=== PATIENT | female | born 1950 | race Caucasian/White ===

== ENCOUNTER 2025-09-19 12:58 | Outpatient (AMB) | payer MEDICARE, OTHER, SELFPAY ==
--- NOTE | 2025-09-19 13:43 | HO.NEPHOV_ITS ---
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 Hypertension: On amlodipine 2.5 mg, benazepril 40 mg, hydrochlorothiazide 25 mg daily lung nodule: partial pneumonectomy Jun 2024 after that she developed ulcerative colitis and is on mesalamine currently Years ago she had seen a renal doctor for microscopic hematuria for few years and it resolved. She developed some swelling in the leg with amlodipine, so her benzapril was doubled from 20 to 40 on August 09. [facility] Medical History (Updated 09/19/25 @ 14:39 by Jamshid Witt MD) Ulcerative colitis Lung cancer Diverticulosis of sigmoid colon HLD (hyperlipidemia) Hypertension Periodontal disease Surgical History (Updated 09/19/25 @ 13:47 by Tyra Rajput MA) S/P lobectomy of lung History of laparoscopic appendectomy H/O colonoscopy Family History (Updated 09/19/25 @ 13:46 by Tyra Rajput MA) Father Heart disease Paternal Uncle Heart disease Social History (Updated 09/19/25 @ 13:46 by Tyra Rajput MA) Alcohol intake: never Patient Tobacco Use Status: Former Tobacco user Use of substances other than those prescribed or required for medical reasons: No Review of Systems Const Details: Const : no body aches, no chills, no fatigue Eyes: no blurry vision and no change in vision ENT: no bleeding gums and no change in voice, no dizziness Card: no chest pain, no shortness of breath, swelling in the leg Resp: no cough, no excessive phlegm production, no SOB GI: no abdominal pain and no nausea, no vomiting : no hematuria, no urinary frequency and no difficulty voiding Musc: no abnormal gait, no bone pain Neuro: no abnormal movements, no weakness, no dizziness, no abnormal gait and no behavioral changes Psych: no behavioral changes and no change in appetite Endo: no change in body appearance, no cold intolerance, no excessive sweating and no fatigue Physical Exam Vital Signs: Last Vital Signs Pulse 66 09/19/25 13:49 BP 132/72 09/19/25 13:49 Pulse Ox 96 09/19/25 13:49 Oxygen Delivery Method Room Air 09/19/25 13:49 BMI result Body Mass Index 27.8 General: not in any acute distress, comfortable, sitting on the chair Nutritional Appearance: well nourished and weight Eyes: normal position, no icterus Neck: No lymphadenopathy, no thyromegaly Resp: bilateral air entry equal, no added sounds present Cardio: normal S1, S2 heard, no murmur heard, no to very minimal edema GI: soft, nontender, no guarding, no hepatosplenomegaly : bladder normal to inspection, bladder normal to palpation, no renal angle tenderness Skin: no rashes or lesions noted and elasticity normal Neuro: oriented to person, oriented to place, oriented to time and moves all extremities Assessment & Plan Assessment & Plan (1) Chronic kidney disease: Code(s): N18.9 - Chronic kidney disease, unspecified Category: Medical Plan Chronic kidney disease stage : unsure if this is related to increase in dose of benzapril, will decrease dose back to 20mg and recheck labs in a month. - no family history of CKD, no history of renal stones in the past, NSAID use. - creatinine 1.25 , GFR 45 - we will get urine microalbumin creatinine ratio and UPCR: - Urinalysis clean - Ct abdomen showing normal sized kidney with a possible extrarenal pelvis this was seen in 2017 - avoid nephrotoxic medications not limited to NSAIDs, contrast etc. - recommend LPD protein about 0.6mg/kg/day, benefits of plant based diet, weight loss, adequate blood pressure control, stop smoking - will get hepatitis panel, HIV, LEONIDAS, ANCA, complements, SPEP, UPEP, serum free light chains, PLA2R - hepatitis C negative Hypertension: - target blood pressures less than 130/90 mm Hg - amlodipine caused lower extremity swelling, so decreased to 2.5 - will decrease bezapril back to 20mg and increase HCTZ to 50mg and recheck labs if creatininemia resolved. Mineral bone disease: - will get calcium, phos, vitamin-D and PTH levels Total time spent is about 45mins, 10 mins on chart review, 25mins on encounter, 10 mins on documentation. Orders: Orders Hepatitis B,C Profile 1 Month N18.9 - Chronic kidney disease, unspecified HIV Ab/Ag 1 Month N18.9 - Chronic kidney disease, unspecified LEONIDAS Reflex Titer and Pattern 1 Month N18.9 - Chronic kidney disease, unspecified ANCA Vasculitides 1 Month N18.9 - Chronic kidney disease, unspecified Complement C4 1 Month N18.9 - Chronic kidney disease, unspecified Protein Electrophoresis,Ran Ur 1 Month N18.9 - Chronic kidney disease, unspecified Protein Electrophoresis, Serum 1 Month N18.9 - Chronic kidney disease, unspecified UA and rflx microscopic 1 Month N18.9 - Chronic kidney disease, unspecified Total Protein Urine Random 1 Month N18.9 - Chronic kidney disease, unspecified Complete Blood Count no Diff 1 Month N18.9 - Chronic kidney disease, unspecified Complement C3 1 Month N18.9 - Chronic kidney disease, unspecified [place]/Lambda Light Chain Serum 1 Month N18.9 - Chronic kidney disease, unspecified Phospholipase A2 Receptor Pnl 1 Month N18.9 - Chronic kidney disease, unspecified Basic Metabolic Panel 1 Month N18.9 - Chronic kidney disease, unspecified Microalbumin, Random (w Creat) 1 Month N18.9 - Chronic kidney disease, unspecified Medications: New benazepril 20 mg (1/2 x 40 mg) PO DAILY 30 tabs 1RF 30 days Coding Level of Care Code New Pt Level 4 (16859) Diagnoses Chronic kidney disease N18.9
[2025-09-19 13:49] VITALS: BP 132/72; PULSE 66; O2SAT 96; BMI 27.8
== END 2025-09-19 14:41 | disposition home or self-care (01) ==
LOC: HO.HKAS 12:59
PROVIDERS: PCP Internal Medicine; Visit Provider Internal Medicine Critical Care Medicine
DX: N18.9 Chronic kidney disease, unspecified (principal)
CPT/HCPCS: 99204

== ENCOUNTER → 2025-09-19 12:58 | Outpatient (BNVA) | payer MEDICARE, OTHER, SELFPAY | PROVIDERS: PCP Internal Medicine; Visit Provider Internal Medicine Critical Care Medicine | DX: I10 Essential (primary) hypertension (principal); N18.9 Chronic kidney disease, unspecified | CPT/HCPCS: 99202 ==

== ENCOUNTER 2025-11-02 09:43 | Outpatient (AMB) | payer MEDICARE, OTHER, SELFPAY ==
--- OUTSIDE RECORDS SUMMARY | 2024-11-11 10:00 | XMS_ITS ---
Author Organization [facility] Address [address] [place] [id number] Care Team Providers Care Client Partner Name Role Phone KIERRA SONG Primary Care Provider DR. ADONIS STEELE [phone] REASON FOR VISIT 36/42/Soft Stools Encounters Encounter Location Date Provider Diagnosis [place] [phone] 11/11/2024 ADONIS STEELE Plan Of Treatment Next Appt Details Provider Name:KIERRA ZEPEDA, 11/21/2025 12:30:00 PM, [address] [place] [address], [id number], Progress Notes * BRYAN NUGENT KDOB: [birth year] (75 yo F)Acc No.[id number]:11/11/2024 Progress Notes Patient: BRYAN HERNANDEZ Provider: Seven STEELE MD :1950 A ge:74 Y S ex:Female Date:11/11/2024 Address:[address] [place], [place] [id number] Pcp:KIERRA SONG Subjective: * Chief Complaints: * 3 6/42/Soft Stools * Electronic signature of DR. ADONIS STEELE M.D. on 11/02/2025 at 10:19 AM EST Sign off status: Pending * Provider: Seven STEELE MD Date: 0 11/11/2024 Generated for Stanford stover/Gabriele/Hilaria on: 1 10:19 AM EST
--- NOTE | 2025-11-02 10:06 | HO.NEPHOV ---
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 Hypertension: On amlodipine 2.5 mg, benazepril 40 mg, hydrochlorothiazide 25 mg daily. Blood pressures are okay at home. lung nodule: partial pneumonectomy Jun 2024 after that she developed ulcerative colitis and was on mesalamine currently. She stopped Mesalamine about a week ago due to concerns about her kidney disease, her ulcerative colitis is under controlled. Years ago she had seen a renal doctor for microscopic hematuria for few years and it resolved. She developed some swelling in the leg with amlodipine, so her benzapril was doubled from 20 to 40 on August 09. [facility] Medical History (Updated 11/02/25 @ 11:02 by Jamshid Witt MD) Ulcerative colitis Lung cancer Diverticulosis of sigmoid colon HLD (hyperlipidemia) Hypertension Periodontal disease Surgical History S/P lobectomy of lung History of laparoscopic appendectomy H/O colonoscopy Family History Father Heart disease Paternal Uncle Heart disease Social History Alcohol intake: never Patient Tobacco Use Status: Former Tobacco user Review of Systems Const Details: Const : no body aches, no chills, no excessive sweating and no fatigue Eyes: no blurry vision and no change in vision ENT: no bleeding gums and no change in voice, no dizziness Card: no chest pain, no shortness of breath, no orthopnea, no PND Resp: no cough, no excessive phlegm production, no SOB GI: no abdominal pain and no nausea, no vomiting : no hematuria, no urinary frequency and no difficulty voiding Musc: no abnormal gait, no bone pain Neuro: no abnormal movements, no weakness, no dizziness Psych: no behavioral changes and no change in appetite Endo: no change in body appearance, no cold intolerance, no excessive sweating and no fatigue Physical Exam Vital Signs: Last Vital Signs Pulse 83 11/02/25 10:07 BP 124/80 11/02/25 10:07 Pulse Ox 93 11/02/25 10:07 Oxygen Delivery Method Room Air 11/02/25 10:07 BMI result Body Mass Index 27.8 General: not in any acute distress, comfortable, sitting on the chair Nutritional Appearance: well nourished and weight Eyes: normal position, no icterus Neck: No lymphadenopathy, no thyromegaly Resp: bilateral air entry equal, no added sounds present Cardio: normal S1, S2 heard, no murmur heard, no edema GI: soft, nontender, no guarding, no hepatosplenomegaly : no renal angle tenderness Skin: no rashes or lesions noted and elasticity normal Neuro: oriented to person, oriented to place, oriented to time and moves all extremities Assessment & Plan Assessment & Plan (1) Chronic kidney disease: Code(s): N18.9 - Chronic kidney disease, unspecified Category: Medical (2) Hypertension: Code(s): I10 - Essential (primary) hypertension Category: Medical Plan Chronic kidney disease stage III : workup so far negative, urinalysis benign possibly suggesting medication induced. Will take off mesalamine and recheck labs if it is not getting better will take off benzapril and then consider renal biopsy if it continues to worsen. She was on benzapril for about 5 years, dose increased 2 months ago, but reduced to previous dose a month ago. - no family history of CKD, no history of renal stones in the past, NSAID use. - creatinine 1.25 ->1.45 , GFR 38 - urine microalbumin creatinine ratio negative and UPCR:normal - Urinalysis clean - Ct abdomen showing normal sized kidney with a possible extrarenal pelvis this was seen in 2017 - avoid nephrotoxic medications not limited to NSAIDs, contrast etc. - recommend LPD protein about 0.6mg/kg/day, benefits of plant based diet, weight loss, adequate blood pressure control - negative hepatitis panel, HIV, LEONIDAS, ANCA, complements, SPEP, UPEP, serum free light chains, PLA2R - hepatitis C negative Hypertension: - target blood pressures less than 130/90 mm Hg - amlodipine caused lower extremity swelling, so decreased to 2.5 - benzapril reduced back to 20mg and HCTZ increased to 50mg during last visit. Asked the patient to stop amlodipine 2.5mg and check her blood pressures and let us know. Will follow her back in a month with repeat BMP> Orders: Orders Basic Metabolic Panel Today N18.9 - Chronic kidney disease, unspecified Coding Level of Care Code Est Pt Level 4 (32243) Diagnoses Chronic kidney disease N18.9 Hypertension I10
[2025-11-02 10:07] VITALS: BP 124/80; PULSE 83; O2SAT 93; BMI 27.8
--- OUTSIDE RECORDS SUMMARY | 2025-11-02 10:20 | XMS_ITS | Clinical Summary ---
Author Organization [facility] [address] [facility] Address [address] [place] [address] Phone Care Team Providers Care Numerical Control Tool Programmer Name Role Phone Pérez Song MD Primary Care Provider + [phone] Allergies Active Allergy Reactions Criticality Noted Date Comments Other 03/11/2024 Seasonal Allergies Penicillins Hives 02/09/2024 Medications aspirin (Vazalore) 81 mg capsule Take by mouth. Active cholecalciferol (VITAMIN D-3) 25 mcg (1,000 unit) tablet Take 1 tablet (1,000 Units total) by mouth 1 (one) time each day. 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 Do not crush, chew, or split. 180 each 3 5 01/11/20 26 Active atorvastatin (LIPITOR) 80 mg tablet Take 1 tablet (80 mg total) by mouth at bedtime. Active amLODIPine-benazepri l (LotreL) 5-10 mg per capsule Take 1 capsule by mouth 1 (one) time each day. Active benazepriL (LOTENSIN) 40 mg tablet Take 1 tablet (40 mg total) by mouth 1 (one) time each day. Active amLODIPine (NORVASC) 2.5 mg tablet Take 1 tablet (2.5 mg total) by mouth 1 (one) time each day. Active hydroCHLOROthiazide (HYDRODIURIL) 50 mg tablet Take 1 tablet (50 mg total) by mouth 1 (one) time each day. Active Hospital, Clinic, or Other Facility Administered Medication Ordered Dose Route Frequency Start Date End Date Status polyethylene glycol (PEG) bowel preparation 238 gIndications:Colon cancer screening 238 g oral Once 09/13/2024 Active Active Problems Problem Noted Date Diagnosed Date History of lung cancer 01/18/2025 Assessment & Plan (08/01/2025 4:28 PM EDT): Ms. Luis is a 74 yr. 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 Her chest CT surveillance scan which was performed on 07/21/25 at [facility] and shows some small stable pleural associated nodules anterolateral aspect of the middle lobe. There no new or worsening suspicious pulmonary nodules or mediastinal lymphadenopathy to suggest evidence of residual or recurrent disease. She was educated that we will continue to follow with her every [address] scans for the first 2 years following her surgical date. After [address] surveillance her chest CT intervals will be increased to every 12 months with a visit to the thoracic surgery department thereafter to discuss results for a total of 5 years. Her next chest CT surveillance scan will be due in 6 months which will be January 2026 and have a visit to thoracic surgery department thereafter to discuss results Assessment & Plan (01/18/2025 1:24 PM EDT): Ms. Luis is a 74 yr. 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 Her chest CT surveillance scan which was performed on 01/05/2025 at [facility] and shows some small stable pleural associated nodules anterolateral aspect of the middle lobe. There no new or worsening suspicious pulmonary nodules or mediastinal lymphadenopathy to suggest evidence of residual or recurrent disease. She denies any concerning symptoms such as new or worsening shortness of breath, hemoptysis, unintentional weight loss or drenching night sweats. She was educated that we will continue to follow with her every [address] scans for the first 2 years following her surgical date. After [address] surveillance her chest CT intervals will be increased to every 12 months with a visit to the thoracic surgery department thereafter to discuss results for another 3 years. She will also require further chest CT scans after 5 years because she is a recent former smoker and had her last cigarette approximately 7 months ago. Her next chest CT scan will be due in July 2025 and have a visit at the thoracic surgery department thereafter to discuss results. Primary cancer of left upper lobe of lung 2023 HTN (hypertension) 03/17/2024 COPD (chronic obstructive pulmonary disease) Pulmonary nodule 03/17/2024 Overview (08/09/2024): Last Assessment & Plan: 73-year-old woman with suspicious PET avid pulmonary nodule in the left upper lobe clinical stage I lung cancer until proven otherwise. Again I had a long discussion with her about lung nodules in general and how their size, shape, and changer fixer time affect her level of suspicion for malignancy. We discussed the PET scan and how they work. Her pulmonary function testing is excellent. With that in mind I discussed 2 options with her 1 would be robotic navigation bronchoscopy with biopsy and to would be a robotic lingular resection for diagnosis and possible lobectomy. She wants to proceed with the biopsy but she is also going to discuss this with her family. I did introduce her to who is going to arrange for the biopsy at [place] in about 2 weeks. Risks benefits and the alternatives were discussed in detail which she understood and agreed to proceed with this plan. If she changes her mind with discussed with her family she will let us know. All questions were answered. Mixed hyperlipidemia 03/17/2024 Periodontal disease 03/17/2024 Lung nodules 03/11/2024 Overview (08/09/2024): Last Assessment & Plan: 73-year-old woman longtime and current smoker with a nodule somewhat intraparenchymal in the left upper lobe suspicious for clinical stage I lung cancer based on size and shape. I had a long discussion with her about pulmonary nodules in general and how their size, shape, and changer fixer time affect our level of suspicion for malignancy. I described the CAT scan to her in detail as described in the HPI. I also discussed the diagnosis, staging, and treatment of lung cancer which she seemed understand. The options I discussed with her our continued observation versus needle biopsy versus surgical resection. Unfortunately, due to its somewhat central position within the lung parenchyma I do not think this could be wedged out surgically without taking a large portion of the left upper lobe if not the entire left upper lobe. Personally, I would recommend a navigational bronchoscopy with biopsy by our interventional floor sweeper but she is not quite ready to make that decision just yet. Either way, we will need to get a PET scan and pulmonary function testing which we should do in the next 2 weeks and then have her follow-up with me in the office to discuss this further. All questions were answered. Encounters Date Type Department Care Team Description 09/23/2025 2:20 PM EST Office Visit Gastroenterology - [address] [facility] 299 [facility] [address] [place] [phone] Debra Salazar, JAEL Ulcerative rectosigmoiditis without complication ([facility] V24, [facility] V28) (Primary Dx) 09/09/2025 9:24 AM EST - 09/09/2025 11:59 PM EST Hospital Encounter [facility] CT Scan [address] [place] [phone] Abdominal distention Discharge Disposition: Home or Self Care from Last 3 Months Surgical History Surgery Date Site/Laterality Comments APPENDECTOMY PROCEDURE:APPENDECTOMY COLONOSCOPY PROCEDURE:COLONOSCOPY CATARACT EXTRACTION W/ INTRAOCULAR LENS IMPLANT Bilateral PROCEDURE:CATARACT EXTRACTION W/ INTRAOCULAR LENS IMPLANT BRONCHOSCOPY RIGID / FLEXIBLE 06/01/2024 Left PROCEDURE:BRONCHOSCOPY RIGID / FLEXIBLE;COMMENT:Procedure: ROBOTIC ASSISTED BRONCHOSCOPY W. ROSARIO FNA, TBBX, BRUSH, BAL + RADIAL EBUS, LINEAR EBUS TBNA W. FLUOROSCOPY, 11L; Surgeon: Kunal Herrera MD; Location: [facility] MAIN OPERATING ROOM; Service: Pulmonary; Laterality: Left; ROBOTIC ASSISTED BRONCHOSC LUNG LOBECTOMY Left PROCEDURE:LUNG LOBECTOMY Medical History Medical History Date Comments Hypertension DX:Hypertension Hyperlipidemia DX:Hyperlipidemi a COPD (chronic obstructive pu lmonary disease) (CMS/HCC V24, CMS/[facility] V28) DX:COPD (chronic o bstructive pulmonary disease) (HCC) Migraine headache DX:Migraine he adache;COMMENT:Past hx Cataract DX:Cataract;COMM ENT:Bilateral Arthritis DX:Arthritis Palpitations DX:Palpitations; COMMENT:Related to anxiety, per pt Lung cancer ([facility] V24, [facility] V28) Family History Medical History Relation Name Comments Bladder Cancer Brother Breast cancer Sister Relation Name Status Comments Brother Father Mother Sister Social History Tobacco Use Types Packs/Day Years Used Date Smoking Tobacco: Former Cigarettes 1 Q uit: 03/03/2024 Smokeless Tobacco: Never Alcohol Use Standard Drinks/Week Comments Not Currently 0 (1 standard drink = 0.6 oz pur e alcohol) Interpersonal Safety Answer Date Record ed Physical Abuse Unrecognized value 12/27/2024 Verbal Abuse Unrecognized value 12/27/2024 Comments No Sex and Gender Information Value Date Recorded Sex Assigned at Female 09/16/2024 11:13 AM EST Legal Sex Female 2:35 AM EST Gender Identity Female 09/16/2024 11:13 AM EST Sexual Orientation Straight 09/16/2024 11 :13 AM EST Obstetrics History Para Term AB IAB SAB Ectopic Multiple Livin g Live Births 2 Last Filed Vital Signs Vital Sign Reading Time Taken Comments Blood Pressure 132/80 09/23/2025 1:53 PM EST Pulse 81 09/23/2025 1:53 PM EST Temperature 36.6 C (97.9 F) 08/01/2025 9:44 AM EDT Respiratory Rate 14 08/01/2025 9:44 AM EDT Oxygen Saturation 98% 09/23/2025 1:53 PM EST Inhaled Oxygen Concentration - - Weight 68.9 kg (152 lb) 09/23/2025 1:53 PM EST Height 160 cm (5' 3 ) 09/23/2025 1:53 PM EST Body Mass Index 26.93 09/23/2025 1:53 PM EST Plan of Treatment Upcoming Encounters Date Type Department Care Team (Late st Contact Info) Description 05/25/2026 9:00 AM EDT Office Visit Gastroenterology - [address] [place] [phone] Debra Salazar NP 299 [facility] [address] [place] [address] Health Maintenance Due Date Last Done Comments DTaP,Tdap,and Td Vaccines (1 - Tdap) 1969 Zoster Vaccines (1 of 2) 1969 Cholesterol Screening (Lipid Panel) 10/06/2022 Hepatitis C Screening 10/06/2022 Medicare Annual Wellness Visit 10/06/2022 Social Influencers of Health Screening 10/06/2022 Hypertension/CHF/CAD Annual BMP Blood Test 05/28/2024 Depression Screening 11/03/2024 COVID-19 Vaccine ( season) 2025 08/07/2024, 08/07/2023, 07/20/2022, Additional history exists RSV Immunization Adult Patients (1 - 1-dose 75+ series) 2025 Falls Risk Assessment 12/27/2025 12/27/2024 Osteoporosis Screening (Bone Density Screening) 07/17/2033 07/17/2023 Colorectal Cancer Screening: Colonoscopy 12/27/2034 12/27/2024 Pneumococcal Vaccine: 50+ Years Completed 03/22/2023 Breast Cancer Screening Discontinued 11/06/19, 07/28/2023, 11/14/2019, Additional history exists Influenza Vaccine Completed 08/20/2025, , 09/05/2023, Additional history exists HIB Vaccines Aged Out No longer eligi ble based on patient's age to complete this topic HPV Vaccines Aged Out No longer eligi ble based on patient's age to complete this topic Hepatitis A Vaccines Aged Out No long er eligible based on patient's age to complete this topic Hepatitis B Vaccines Aged Out No long er eligible based on patient's age to complete this topic IPV Vaccines Aged Out No longer eligi ble based on patient's age to complete this topic MMR Vaccines Aged Out No longer eligi ble based on patient's age to complete this topic Meningococcal ACWY Vaccine Aged Out N o longer eligible based on patient's age to complete this topic Meningococcal B Vaccine Aged Out No l onger eligible based on patient's age to complete this topic RSV Immunization Patients Under 20 months Aged Out No longer eligible based on patient's age to complete this topic Varicella Vaccines Aged Out No longer eligible based on patient's age to complete this topic Procedures Procedure Name Priority Date/Time Associated Diagnosis Comments CT ABDOMEN PELVIS WO CONTRAST Routine 09/09/2025 9:46 AM EST Abdominal distention COLONOSCOPY Routine 12/27/2024 12:58 PM EST Family history of colonic polyps MG MAMMO DIGITAL SCREENING W HECTOR BILAT Routine 11/06/2024 9:15 AM EST Encounter for screening mammogram for breast cancer DORY DEXA AXIAL SKELETON Routine 07/17/2023 10:35 AM EDT Other specified disorders of bone density and structure, left thigh from Last 3 Months or Most Recently Relevant to Health Maintenance Results * CT Abdomen Pelvis wo Contrast (09/09/2025 9:46 AM EST) Anatomical Region Laterality Modality Body Computed Tomogra phy 09/16/2025 11:3 4 AM EST Impressions 09/16/2025 11:50 AM EST 1. No evidence of bowel obstruction. 2. No acute abnormality. 3. Abnormal appearance of the uterus. Recommend pelvic ultrasound. Pulmonary nodule recommendation: No further investigation recommended (Per Fleischner Society guidelines). -------- FINAL REPORT -------- Dictated By: Gaston Daniels Dictated Date: 09/16/2025 11:34 ET Assigned Physician: Gaston Daniels Reviewed and Electronically Signed By: Gaston Daniels Signed Date: 09/16/2025 11:50 ET Workstation ID: [id number] Transcribed By: Self Edit Transcribed Date: 09/16/2025 11:34 ET Narrative 09/16/2025 11:50 AM EST EXAMINATION: CT ABDOMEN/PELVIS WITHOUT IV CONTRAST CLINICAL INFORMATION: Abdominal distention. COMPARISON: Portions of a previous CT 03/13/07 TECHNIQUE: Multidetector CT. Helical examination of the abdomen and pelvis. Imaging performed without IV contrast. Reformatting in the coronal and sagittal planes. DLP: 907 mGy-cm Dose optimization was performed including the use of low-dose iterative reconstruction technique with automatic exposure control based on patient size. Type of contrast: None Volume of IV contrast: None Volume of contrast discarded: 0 mL FINDINGS: Digital ceramic painter does not demonstrate definite small bowel distention. LIVER: The right lobe of the liver measures 15.5 cm. No suspicious focal lesion. BILIARY TRACT: The gallbladder is not distended. There is no opaque gallstone. There is no biliary dilation. SPLEEN: The spleen measures 7.1 cm. No suspicious abnormality. PANCREAS: No suspicious abnormality. ADRENAL GLANDS: No suspicious abnormality. KIDNEYS: Mild fullness of the extrarenal pelvis bilaterally similar to 2007. There is no dilation of the infundibula or calyces. There is no suspicious renal mass. There is no opaque urinary calculus. URINARY BLADDER: The bladder is nearly empty. No suspicious abnormality. PELVIC VISCERA: There is a contour abnormality involving the uterine fundus. The endometrium appears slightly heterogeneous and mildly thickened. Recommend pelvic ultrasound. The ovaries appear within normal limits. GASTROINTESTINAL TRACT: Oral contrast is present in the distal colon. There is some fatty prominence in the wall of the distal colon. No abnormal appendix. Normally distributed normal caliber small bowel loops. There is a small to moderate size hiatal hernia. ABDOMINAL WALL: No significant hernia is appreciated. LYMPHOVASCULAR STRUCTURES AND FLUID: There is no abdominal aortic aneurysm. There are no enlarged lymph nodes. There is no free intraperitoneal fluid. VISUALIZED LOWER CHEST: No suspicious abnormality. Unchanged pleural associated 0.4 cm nodule in the lateral segment of the middle lobe. There is some coronary calcification. MUSCULOSKELETAL: No acute or suspicious osseous abnormality. Procedure Note Gaston Daniels MD - 09/16/2025 EXAMINATION: CT ABDOMEN/PELVIS WITHOUT IV CONTRAST CLINICAL INFORMATION: Abdominal distention. COMPARISON: Portions of a previous CT 03/13/07 TECHNIQUE: Multidetector CT. Helical examination of the abdomen and pelvis. Imaging performed without IV contrast. Reformatting in the coronal and sagittal planes. DLP: 907 mGy-cm Dose optimization was performed including the use of low-dose iterativereconstruction technique with automatic exposure control based on patientsize. Type of contrast: None Volume of IV contrast: None Volume of contrast discarded: 0 mL FINDINGS: Digital ceramic painter does not demonstrate definite small bowel distention. LIVER: The right lobe of the liver measures 15.5 cm. No suspicious focallesion. BILIARY TRACT: The gallbladder is not distended. There is no opaquegallstone. There is no biliary dilation. SPLEEN: The spleen measures 7.1 cm. No suspicious abnormality. PANCREAS: No suspicious abnormality. ADRENAL GLANDS: No suspicious abnormality. KIDNEYS: Mild fullness of the extrarenal pelvis bilaterally similar [id number]. There is no dilation of the infundibula or calyces. There is nosuspicious renal mass. There is no opaque urinary calculus. URINARY BLADDER: The bladder is nearly empty. No suspiciousabnormality. PELVIC VISCERA: There is a contour abnormality involving the uterinefundus. The endometrium appears slightly heterogeneous and mildlythickened. Recommend pelvic ultrasound. The ovaries appear within normal limits. GASTROINTESTINAL TRACT: Oral contrast is present in the distal colon.There is some fatty prominence in the wall of the distal colon. No abnormal appendix. Normally distributed normal caliber small bowel loops. There is a small tomoderate size hiatal hernia. ABDOMINAL WALL: No significant hernia is appreciated. LYMPHOVASCULAR STRUCTURES AND FLUID: There is no abdominal aorticaneurysm. There are no enlarged lymph nodes. There is no freeintraperitoneal fluid. VISUALIZED LOWER CHEST: No suspicious abnormality. Unchanged pleuralassociated 0.4 cm nodule in the lateral segment of the middle lobe. Thereis some coronary calcification. MUSCULOSKELETAL: No acute or suspicious osseous abnormality. IMPRESSION: 1. No evidence of bowel obstruction. 2. No acute abnormality. 3. Abnormal appearance of the uterus. Recommend pelvic ultrasound. Pulmonary nodule recommendation: No further investigation recommended (PerFleischner Society guidelines). -------- FINAL REPORT -------- Dictated By: Gaston Daniels Dictated Date: 09/16/2025 11:34 ET Assigned Physician: Gaston Daniels Reviewed and Electronically Signed By: Gaston Daniels Signed Date: 09/16/2025 11:50 ET Workstation ID: [id number] Transcribed By: Self Edit Transcribed Date: 09/16/2025 11:34 ET Pérez Song MD IM CT PROCEDURES Final Resu lt * COLONOSCOPY Anesthesia - MAC; [facility] ENDOSCOPY (12/27/2024 12:58 PM EST) Anatomical Region Laterality Modality Endoscopy 12/27/2024 12:3 7 PM EST Impressions 12/27/2024 1:03 PM EST - Hemorrhoids found on perianal exam. - The examined portion of the ileum was normal. Biopsied. - Proctosigmoid ulcerative colitis. Inflammation was found from the anus to the sigmoid colon. This was mild in severity, new compared to previous examinations. - Internal hemorrhoids. - Background biopsies were taken from the entire colon. Recommendation: - Await pathology results. Narrative 12/27/2024 1:03 PM EST [facility] GI Patient Name: Dilma Luis Procedure Date: 12/27/2024 12:37 PM Date of : 1950 Age: 74 Gender: Female Note Status: Finalized Attending MD: Gabriela Nunez MD, Procedure Date No Time: 12/27/2024 Procedure: Colonoscopy Indications: Screening for colorectal malignant neoplasm, Incidental change in bowel habits noted Providers: Gabriela Nunez MD Referring MD: Pérez Song MD Medicines: Propofol per Anesthesia Complications: No immediate complications. Estimated Blood Loss: Estimated blood loss: none. Procedure: Pre-Anesthesia Assessment: - ASA Grade Assessment: III - A patient with severe systemic disease. After I obtained informed consent, the scope was passed under direct vision. Throughout the procedure, the patient's blood pressure, pulse, and oxygen saturations were monitored continuously.The Olympus Pediatric Colonoscope was introduced through the anus and advanced to the terminal ileum. The colonoscopy was performed without difficulty. The patient tolerated the procedure well. The quality of the bowel preparation was adequate. Findings: Hemorrhoids were found on perianal exam. The terminal ileum appeared normal. Biopsies were taken with a cold forceps for histology. Inflammation characterized by erythema and loss of vascularity was found in a continuous and circumferential pattern from the anus to the sigmoid colon (0-25cm). The proximal sigmoid colon, the mid sigmoid colon, the descending colon, the ascending colon and the cecum were spared. The inflammation was mild in severity, and when compared to previous examinations, the findings are new. Background biopsies were taken for histology with a cold forceps from the entire colon. These biopsy specimens from the right colon, left colon and rectosigmoid colon were sent to Pathology. Internal hemorrhoids were found during retroflexion. The hemorrhoids were Grade I (internal hemorrhoids that do not prolapse). 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 All rights reserved. The codes documented in this report are preliminary and upon rhit review may be revised to meet current compliance requirements. Gabriela Nunez MD 12/27/2024 1:02:51 PM This report has been signed electronically.Gabriela Nunez MD Number of Addenda: 0 Note Initiated On: 12/27/2024 12:37 PM Scope In: Scope Out: Endoscopy Department at [facility] - [address] [place] [id number] Procedure Note Gabriela Nunez MD - 12/27/2024 [facility] GI Patient Name: Dilma Luis Procedure Date: 12/27/2024 12:37 PM Date of : 1950 Age: 74 Gender: Female Note Status: Finalized Attending MD: Gabriela Nunez MD, Procedure Date No Time: 12/27/2024 Procedure: Colonoscopy Indications: Screening for colorectal malignant neoplasm, Incidental change in bowel habits noted Providers: Gabriela Nunez MD Referring MD: Pérez Song MD Medicines: Propofol per Anesthesia Complications: No immediate complications. Estimated Blood Loss: Estimated blood loss: none. Procedure: Pre-Anesthesia Assessment: - ASA Grade Assessment: III - A patient with severe systemic disease. After I obtained informed consent, the scope was passed under direct vision. Throughout theprocedure, the patient's blood pressure, pulse, and oxygen saturations were monitored continuously.The Olympus Pediatric Colonoscope was introduced through theanus and advanced to the terminal ileum. The colonoscopy was performed without difficulty. The patient tolerated the procedure well. The quality of thebowel preparation was adequate. Findings: Hemorrhoids were found on perianal exam. The terminal ileum appeared normal. Biopsies were taken with a cold forceps for histology. Inflammation characterized by erythema and loss of vascularity was found in a continuous and circumferential pattern from the anus to thesigmoid colon (0-25cm). The proximal sigmoid colon, the mid sigmoid colon, the descending colon, the ascending colon and the cecum were spared. The inflammationwas mild in severity, and when compared to previous examinations, the findings are new. Background biopsies were taken for histology with a coldforceps from the entire colon. These biopsy specimens fromthe right colon, left colon and rectosigmoid colon were sent to Pathology. Internal hemorrhoids were found duringretroflexion. The hemorrhoids were Grade I (internal hemorrhoids that do not prolapse). Procedure Code(s): --- Professional --- 94243, Colonoscopy, flexible; with biopsy, singleor multiple Diagnosis Code(s): --- Professional --- Z12.11, Encounter for screening for malignantneoplasm of colon K51.30, Ulcerative (chronic) rectosigmoiditiswithout complications CPT copyright 2020 [employer]. All rights reserved. The codes documented in this report are preliminary and upon rhit reviewmay be revised to meet current compliance requirements. Gabriela Nunez MD 12/27/2024 1:02:51 PM This report has been signed electronically.Gabriela Nunez MD Number of Addenda: 0 Note Initiated On: 12/27/2024 12:37 PM Scope In: Scope Out: Endoscopy Department at [facility] - [address] [place] [id number] IMPRESSION: - Hemorrhoids found on perianal exam. - The examined portion of the ileum was normal. Biopsied. - Proctosigmoid ulcerative colitis. Inflammationwas found from the anus to the sigmoid colon. This was mild in severity, new compared to previous examinations. - Internal hemorrhoids. - Background biopsies were taken from the entirecolon. Recommendation: - Await pathology results. us Gabriela Nunez MD GI~PROCEDURE ORDERABLES Final Result * MG Mammo Digital Screening w Hector bilat (11/06/2024 9:15 AM EST) Anatomical Region Laterality Modality Breast Bilateral Mammography 11/09/2024 8:18 AM EST Impressions 11/09/2024 8:23 AM EST No mammographic evidence of malignancy. A negative mammogram in the presence of a clinically suspicious palpable abnormality does not preclude the possibility of malignancy or alter the indications for biopsy. PQRI CPT II 3342F Code 97384, 85169 PQRI 225 CPT II 7025F TISSUE DENSITY: The breasts are heterogeneously dense, which may obscure small masses. (BI-RADS category C) IMPRESSION: Benign. BI-RADS CATEGORY: 2 - BENIGN RECOMMENDATION: Screening bilateral mammogram is recommended in 1 year. Mammo Location: [facility], [address] [place] [id number] -------- FINAL REPORT -------- Dictated By: Rock Damian Dictated Date: 11/09/2024 08:18 ET Assigned Physician: Rock Damian Reviewed and Electronically Signed By: Rock Damian Signed Date: 11/09/2024 08:23 ET Workstation ID: [id number] Transcribed By: Self Edit Transcribed Date: 11/09/2024 08:18 ET Narrative 11/09/2024 8:23 AM EST CLINICAL: The patient is a 74 years Female presenting for routine screening mammography. COMPARISON: Most recently 07/26/2023 and most remotely 07/19/2017. TECHNIQUE: Full-field digital mammography of the breasts bilaterally consisting of tomosynthesis in MLO and CC projection is performed in the [employer] 2000-D unit. Computer aided detection utilizing the iCAD system was utilized. FINDINGS: The breasts are again seen to be composed of a combination of fatty and moderately dense fibroglandular elements. Bilateral benign punctate, coarse, and rim calcifications are stable. There is no suspicious cluster of microcalcifications, mass, or area of architectural distortion. There is no skin thickening or nipple retraction. Procedure Note Rock Damian MD - 11/09/2024 CLINICAL: The patient is a 74 years Female presenting for routinescreening mammography. COMPARISON: Most recently 07/26/2023 and most remotely 07/19/2017. TECHNIQUE: Full-field digital mammography of the breasts bilaterallyconsisting of tomosynthesis in MLO and CC projection is performed in the[employer] 2000-D unit. Computer aided detection utilizing the iCADsystem was utilized. FINDINGS: The breasts are again seen to be composed of a combination offatty and moderately dense fibroglandular elements. Bilateral benignpunctate, coarse, and rim calcifications are stable. There is nosuspicious cluster of microcalcifications, mass, or area of architecturaldistortion. There is no skin thickening or nipple retraction. IMPRESSION: No mammographic evidence of malignancy. A negative mammogram in the presence of a clinically suspicious palpableabnormality does not preclude the possibility of malignancy or alter theindications for biopsy. PQRI CPT II 3342F Code 46879, 43933 PQRI 225 CPT II 7025F TISSUE DENSITY: The breasts are heterogeneously dense, which may obscuresmall masses. (BI-RADS category C) IMPRESSION: Benign. BI-RADS CATEGORY: 2 - BENIGN RECOMMENDATION: Screening bilateral mammogram is recommended in 1 year. Mammo Location: [facility], [facility], [address] [place] [address] -------- FINAL REPORT -------- Dictated By: Rock Damian Dictated Date: 11/09/2024 08:18 ET Assigned Physician: Rock Damian Reviewed and Electronically Signed By: Rock Damian Signed Date: 11/09/2024 08:23 ET Workstation ID: [id number] Transcribed By: Self Edit Transcribed Date: 11/09/2024 08:18 ET us Self Referral Sppl IMG BI PROCEDURES Final Resul t * DORY DEXA AXIAL SKELETON (07/17/2023 10:35 AM EDT) Anatomical Region Laterality Modality Mammography 07/17/2023 9:42 AM EDT Narrative 07/17/2023 10:35 AM EDT [facility] Diagnostic Imaging Department [address] [place] [id number] Patient: DILMA LUIS/Age/Sex: 1950 - 72 - F Unit#: [id number] Location/Status: SPDIMAM/REG CLI Mnemonic[facility] Ordering Physician: PÉREZ SONG MD Dory Dexa Axial Skeleton - 07/17/23 - 1002 Report Status:Signed HISTORY: The patient is a 72-year-old postmenopausal female smoker with clinical concern for metabolic bone disease. FINDINGS: Dual energy x-ray absorptiometry of the lumbar spine and femurs is performed. The mean bone mineral density at L1-L4 (with the exclusion of L3) is 1.351 gm/cm2 which is 115% of that of young normals and 143% of that of age matched controls. This yields a T-score of 1.5 and a Z-score of 3.4 and there is therefore no evidence of osteoporosis or osteopenia here. The mean bone mineral density of the femurs bilaterally is 0.958 gm/cm2 which is 95% of that of young normals and 121% of that of age matched controls. This yields a T-score of -0.4 and a Z-score of 1.3 and there is therefore no evidence of osteoporosis or osteopenia here. However, the T-score of the left femoral neck is -1.2 which is diagnostic of osteopenia. IMPRESSION: 1. Osteopenia. There has been an increase of 0.7% in bone mineral density in the lumbar spine since the prior examination of 05/29/2016. There has been a decrease of 5.3% in bone mineral density in the right femur and a decrease of 6.1% in bone mineral density in the left femur. 2. FRAX analysis yields a 10-year probability of major osteoporotic fracture of 14.7% and a 10-year probability of hip fracture of 3.1%. Code 40245 Dictating Physician: ROCK DAMIAN MD Electronically Signed by: ROCK DAMIAN MD Dic Date/Time: 07/17/23 1033 Sign date/Time: 07/17/23 1035 Procedure Note Rock Damian MD - 12/09/2023 [facility] Diagnostic Imaging Department [address] [place] [id number] Patient: DILMA LUIS Chaya MoranB./Age/Sex: 1950 - 72 - F Unit#: [id number] [facility]ing [facility] Ordering Physician: PÉREZ SONG MD Dory Dexa Axial Skeleton - 07/17/23 - 1002 Report Status:Signed HISTORY: The patient is a 72-year-old postmenopausal female smoker with clinical concern for metabolic bone disease. FINDINGS: Dual energy x-ray absorptiometry of the lumbar spine and femursis performed. The mean bone mineral density at L1-L4 (with the exclusion ofL3) is 1.351 gm/cm2 which is 115% of that of young normals and 143% of that ofage matched controls. This yields a T-score of 1.5 and a Z-score of 3.4 andthere is therefore no evidence of osteoporosis or osteopenia here. The mean bone mineral density of the femurs bilaterally is 0.958 gm/ho6dltcw is 95% of that of young normals and 121% of that of age matched controls.This yields a T-score of -0.4 and a Z-score of 1.3 and there is therefore noevidence of osteoporosis or osteopenia here. However, the T-score of the leftfemoral neck is -1.2 which is diagnostic of osteopenia. IMPRESSION: 1. Osteopenia. There has been an increase of 0.7% in bone mineral densityin the lumbar spine since the prior examination of 05/29/2016. There has surya decrease of 5.3% in bone mineral density in the right femur and a decreaseof 6.1% in bone mineral density in the left femur. 2. FRAX analysis yields a 10-year probability of major osteoporoticfracture of 14.7% and a 10-year probability of hip fracture of 3.1%. 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
--- OUTSIDE RECORDS SUMMARY | 2025-11-02 10:20 | XMS_ITS ---
Author Name [facility] Organization Unknown History of Medication Use Medication Directions Dispensed Refills Start Date End Date Stat ipratropium-albuter ol (DUO-NEB) 0.5-2.5 mg/mL nebulizer solution Starting on Fri06/01/24 at 1205, For 1 dose, PACU/Phase 1BLeeann tim: cabinet override 06/01/2024 06/01/20 24 completed acetaminophen (TYLENOL) tablet 650 mg 650 mg, Oral, Every 6 hours PRN, mild pain (1-3), Starting on Fri06/01/24 at 1153, PACU/Phase 1 06/01/2024 active dexamethasone (DECADRON) injection 4 mg 4 mg, Intravenous, Once as needed, other, nausea, vomiting, Starting on Fri06/01/24 at 1153, For 1 dose, PACU/Phase 1Administer 2nd unless given in the OR if zofran is ineffective and patient continues to be symptomatic. 06/01/2024 active dimenhyDRINATE (DRAMAMINE) injection 25 mg 25 mg, Intravenous, Once as needed, nausea, Nausea, vomiting, Starting on Fri06/01/24 at 1153, For 1 dose, PACU/Phase 1Administer 3rd unless given in the OR if zofran and decadron are ineffective and patient continues to be symptomatic. INTRAMUSCULAR: No dilution required INTRAVENOUS: Must dilute 06/01/2024 active HYDROmorphone (DILAUDID) injection 0.2 mg 0.2 mg, Intravenous, Every 15 min PRN, moderate pain (4-6), Starting on Fri06/01/24 at 1153, PACU/Phase 1FOR PACU USE ONLY. If unable to take by mouth. Do not exceed 2 mg. 06/01/2024 active HYDROmorphone (DILAUDID) injection 0.5 mg 0.5 mg, Intravenous, Every 15 min PRN, severe pain (7-10), Starting on Fri06/01/24 at 1153, PACU/Phase 1FOR PACU USE ONLY. If unable to take by mouth. Do not exceed 2 mg. Administer IV push over 2-3 minutes. 06/01/2024 active meperidine (DEMEROL) 25 MG/ML injection 12.5 mg 12.5 mg, Intravenous, Every 30 min PRN, shivering not due to postoperative hypothermia., Starting on Fri06/01/24 at 1153, For 2 doses, PACU/Phase 1May repeat x 1 in 30 minutes. 06/01/2024 active ondansetron (ZOFRAN) injection 4 mg 4 mg, Intravenous, Once as needed, nausea, vomiting, Starting on Fri06/01/24 at 1153, For 1 dose, PACU/Phase 1Administer 1st unless given in OR, then administer dexamethasone 06/01/2024 active orphenadrine (NORFLEX) injection 30 mg 30 mg, Intravenous, Once as needed, muscle spasms, for musculoskeletal pain, to achieve pain scale less than or equal to 4, Starting on Fri06/01/24 at 1153, For 1 dose, PACU/Phase 1 06/01/2024 active oxyCODONE (ROXICODONE) 5 MG immediate release tablet 5 mg 5 mg, Oral, Every 4 hours PRN, moderate pain (4-6), achieve pain scale less than or equal to 4, Starting on Fri06/01/24 at 1153, For 2 doses, PACU/Phase 1Give when patient is able to take PO. 06/01/2024 active amLODIPine-benazepr il (Lotrel) 5-20 MG per capsule Take 1 capsule by mouth daily. active aspirin EC 81 MG tablet Take 1 tablet (81 mg total) by mouth daily. active atorvastatin (LIPITOR) tablet 40 mg Take 1 tablet (40 mg total) by mouth daily. active vitamin D3 (cholecalciferol) 25 MCG (1000 UT) tablet Take 1 tablet (25 mcg total) by mouth every evening. active Allergies Allergen Reaction Severity Comment Documented Date Source Statu s PENICILLINS HIVES 05/26/2024 CTTHSFRAN active Problems Problem Status Onset Date Problem Type Date of Resoluti on Source Lung nodule active 2024-05-14 ProblemAct CTTHSF RAN Pain active EncounterDiagnosisAct CTTHSFRAN Encounters Encounter Type Encounter Reason Primary Diagnosis Location Date Ambulatory Pain, unspecified Pain, unspecified [facility] 06/01/2024 Care Team Organization Name Specialty Phone Email Start Date End Da te [facility] [place] [facility]
--- OUTSIDE RECORDS SUMMARY | 2025-11-02 10:20 | XMS_ITS | Patient Health Record ---
Author Organization [facility] Address [address] [place] [address] Care Team Providers Care Instrument Panel Assembler Name Role Phone KIERRA SONG Primary Care Provider [phone] ADONIS STEELE [phone] Allergies Allergen (clinical drug ingredient) Drug/Non Drug Allergy documented on EMR Reaction Allergy Type Onset Date Status Penicillin hives Drug Allergy Active Reason For Referral Reason 11/09/24 w appt [facility] GI consultation for gastrointestinal distress change in bowels. Send copy of my last note to them Diagnosis 1 Disorder of lipoprot ein metabolism, unspecified (E78.9) Referral Organization [facility] abhay Referring Provider First Name KIERRA Referring Provider Last Name DUNCAN Referring Provider Speciality Internal [facility] Referred Provider Specialty Gastroentero logy General Notes Didi BLACK Admin 05/2025 11:50:08 AM > Per office protocol medical referral, notes and labs have been faxed to [phone]>no referral required, Colleen BLACK Call Center 11/30/2024 08:49:08 AM >Pt called and advised of the above, Chrissy BLACK Insurance Broker 08/27/2025 09:56:25 AM > 12/03/24 note in chart and reviewed by provider. Referral Priority Urgent Reason 09/05/25 W APPT Refe rral to Dr. Aragon from nephrology for elevated serum creatinine Diagnosis 1 Elevated serum creat inine (R79.89) Referral Organization [facility]hay Referring Provider First Name KIERRA Referring Provider Last Name DUNCAN Referring Provider Speciality Internal M edicine Referred Provider ROSITA ARAGON Referred Provider Specialty Nephrology General Notes Didi BLACK Seven Admin 01/2025 11:02:03 AM > faxed medical referral, note and last year of labs (separately) to [phone] Referral Priority Routine Medications Medication SIG (Take, Route, Frequency, Duration) Notes Start Date End Date Status hydroCHLOROthiazide 25 MG Tablet 1 tablet in the morning Orally Once a day; Duration: 90 days 08/09/2025 Active amLODIPine Besylate 2.5 MG Tablet 1 tablet Orally Once a day; Duration: 90 days 05/05/2025 Active Mesalamine 1.2 GM Tablet Delayed Release 2 tablets with a meal Orally Once a day Active Aspirin 81 81 MG Tablet Renee yed Release 1 tablet Orally Once a day Active Vitamin D-3 25 MCG (1000 UT) Capsule 1 capsule Orally Once a day; Duration: 30 day(s) Active Lipitor 80 MG Tablet 1 tab(s) Orally daily; Duration: 90 days Active Benazepril HCl 40 MG Tablet 1 tablet Ora lly Once a day; Duration: 90 days 05/05/2025 Active Social History Tobacco Use: Social History Observation Description Date Details (start date - stop date) Former Smoker NA - NA Social History Tobacco Use: Social Info Question Answer Notes Smoking Are you a: former smoker How long has it been since you last smoked? 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 Motivated to quit. Problem Emphysema of lung (40188626) Emphysema of lung NOS (492.8) Active confirmed Problem Solitary pulmonary nodule (207466330) Solitary pulmonary nodule (793.11) Active confirmed Problem Elevated blood pressure reading without diagnosis of hypertension (463034787) Elevated blood pressure reading without diagnosis of hypertension (R03.0) Active confirmed Problem Essential hypertension (36926795) Essential (primary) hypertension (I10) Active confirmed Problem Chronic obstructive pulmonary disease (87772626) Chronic obstructive pulmonary disease, unspecified (J44.9) Active confirmed Problem Disorder of lipoprotein storage and metabolism (disorder) (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) Disorder of lipoprotein metabolism, unspecified (E78.9) Active confirmed Problem Tobacco user (319793384) Nicotine dependence, unspecified, uncomplicated (F17.200) Active confirmed Problem Centrilobular emphysema (59355532) Centrilobular emphysema (J43.2) Active confirmed Problem Emphysema (48801060) Other emphysema (J43.8) Active confirmed Problem Multiple pulmonary nodules (361404909) Pulmonary nodules (R91.8) Active confirmed Problem Malignant neoplasm of upper lobe of left lung (362502261) Malignant neoplasm of upper lobe of left lung (C34.12) Active confirmed Problem Hyperlipidaemia (83119166) Hyperlipidemia, unspecified hyperlipidemia type (E78.5) Active confirmed Problem Functional dyspepsia (7051544) Gastrointestinal distress (K30) Active confirmed Problem Leukocytosis (160274936) Leukocytosis, unspecified (D72.829) Active confirmed Problem Solitary nodule of lung (898729977) Lung nodule seen on imaging study (R91.1) Active confirmed Problem Ulcerative colitis (81806828) Ulcerative colitis with complication, unspecified location (K51.919) Active confirmed Problem Malignant tumor of lung (543415312) Squamous cell carcinoma of lung, unspecified laterality (C34.90) Active confirmed Vital Signs Blood pressure diastolic 80 mm Hg 08/09/2025 Height 63 in 08/09/2025 Blood pressure systolic 132 mm Hg 08/09/2025 Weight 157 lbs 08/09/2025 BMI 27.81 kg/m2 08/09/2025 Encounters Encounter Location Date Provider Diagnosis [address] [address] 08/09/2025 KIERRA SONG Disorder of lipoprot ein metabolism, unspecified E78.9 ; Essential (primary) hypertension I10 ; Nicotine dependence, unspecified, uncomplicated F17.200 ; Chronic obstructive pulmonary disease, unspecified J44.9 ; Malignant neoplasm of upper lobe of left lung C34.12 ; Colon cancer screening Z12.11 ; Osteopenia, unspecified location M85.80 ; Abdominal distention R14.0 and Lower extremity edema R60.[address] [address] 02/03/2025 KIERRA SONG Disorder of lipoprot ein metabolism, unspecified E78.9 ; Essential (primary) hypertension I10 ; Nicotine dependence, unspecified, uncomplicated F17.200 ; Chronic obstructive pulmonary disease, unspecified J44.9 ; Squamous cell carcinoma of lung, unspecified laterality C34.90 ; Ulcerative colitis with complication, unspecified location K51.919 ; Leukocytosis, unspecified D72.829 and Intermittent palpitations R00.2 [place] [id number] 09/20/2025 KIERRA SONG [address] 09/19/2025 KIERRA SONG [place] [id number] 09/06/2025 KIERRA SONG [place] [id number] 09/05/2025 KIERRA SONG [place] [id number] 09/02/2025 KIERRA SONG [place] [id number] 09/02/2025 KIERRA SONG Elevated serum creatinine R79.89 [facility] [address] [place], [place] [phone] 08/24/2025 KIERRA SONG Essential (primary) hypertension I10 [place] [id number] 05/18/2025 KIERRA SONG [place] [id number] 05/05/2025 KIERRA SONG Disorder of lipoprot ein metabolism, unspecified E78.[address] [address] 02/04/2025 KIERRA SONG Disorder of lipoprot ein metabolism, unspecified E78.9 [place] [id number] 11/23/2024 KIERRA SONG [place] [id number] 11/12/2024 KIERRA SONG [place] [id number] 11/09/2024 KIERRA SONG Disorder of lipoprot ein metabolism, unspecified E78.9 ; Essential (primary) hypertension I10 and Gastrointestinal distress K30 [facility] [address] [place] [address] 11/09/2024 KIERRA DUNCAN Assessments Encounter Date Diagnosis (ICD Code) Assessment Notes Treatment Notes Treatment Clinical Notes Section Notes 05/05/2025 Disorder of lipoprotein metabolism, unspecified (ICD-10 - E78.9) 09/02/2025 Elevated serum creatinine (ICD-10 - R79.89) 08/24/2025 Essential (primary) hypertension (ICD-10 - I10) 08/09/2025 Disorder of lipoprotein metabolism, unspecified (ICD-10 - E78.9) Patient has an ongoing intermittent rash that occurs several times through the day which is very pruritic. Patient states that that significantly worse when her Lipitor was increased on the dosage. Therefore we will give a trial off Lipitor for about 4 weeks and see if that makes a difference. 08/09/2025 Essential (primary) hypertension (ICD-10 - I10) Blood pressure suboptimal control. Therefore we will add 25 mg of hydrochlorothiazide to the benazepril. Open this will help with blood pressure control and lower extremity edema. 02/04/2025 Disorder of lipoprotein metabolism, unspecified (ICD-10 - E78.9) 02/03/2025 Essential (primary) hypertension (ICD-10 - I10) Blood pressure with excellent control therefore no change in therapy recheck electrolytes last potassium slightly elevated 02/03/2025 Disorder of lipoprotein metabolism, unspecified (ICD-10 - E78.9) Stable. Review of systems negative for side effects continue statin. LDL goal less than 100. Follow-up in 6 months 11/09/2024 Essential (primary) hypertension (ICD-10 - I10) 11/09/2024 Disorder of lipoprotein metabolism, unspecified (ICD-10 - E78.9) 11/09/2024 Gastrointestinal distress (ICD-10 - K30) 02/03/2025 Nicotine dependence, unspecified, uncomplicated (ICD-10 - F17.200) Patient congratulated on nicotine smoking abstinence for almost 1 year encouraged to continue 08/09/2025 Nicotine dependence, unspecified, uncomplicated (ICD-10 - F17.200) Patient off cigarettes fortunately. Congratulated on abstinence 02/03/2025 Chronic obstructive pulmonary disease, unspecified (ICD-10 - J44.9) Stable no symptoms 08/09/2025 Chronic obstructive pulmonary disease, unspecified (ICD-10 - J44.9) Stable doing well follow-up with pulmonary no smoking 08/09/2025 Malignant neoplasm of upper lobe of left lung (ICD-10 - C34.12) 6-month CAT scan stable continue follow-up with cardiothoracic surgery 02/03/2025 Squamous cell carcinoma of lung, unspecified laterality (ICD-10 - C34.90) Follow-up cardiothoracic surgery every 6 months. This will go on for 2 years and then yearly after that for several years 08/09/2025 Colon cancer screening (ICD-10 - Z12.11) Stable. Up-to-date on colonoscopy and follow-up with GI this coming 02/03/2025 Ulcerative colitis with complication, unspecified location (ICD-10 - K51.919) Doing much better continue with the mesalamine orally 08/09/2025 Osteopenia, unspecified location (ICD-10 - M85.80) Calcium plus vitamin D twice daily density 2 to 3 years no smoking weightbearing exercise 02/03/2025 Leukocytosis, unspecified (ICD-10 - D72.829) Recheck CBC with differential no signs of infection 02/03/2025 Intermittent palpitations (ICD-10 - R00.2) Close and stable symptoms been going on for years check EKG sinus rhythm minimize stimulants and caffeinated products 08/09/2025 Abdominal distention (ICD-10 - R14.0) An ultrasound in November which was unremarkable. Ongoing symptoms we will set up a CT scan of the abdomen and pelvis check full labs 08/09/2025 Lower extremity edema (ICD-10 - R60.0) And low-dose diuretic HCTZ 25 mg to her regimen. Check labs check BMP check cardiac echo Plan Of Treatment Pending Test Test Name Order Date LDCT Chest 07/16/2023 CT chest w/o contrast 07/14/2023 CT Abdomen & Pelvis with Oral and IV con trast 08/09/2025 Future Test Test Name Order Date CT Scan : Chest without IV contrast 01/2014 CT CHEST WITHOUT CONTRAST 03/19/2017 COMPLETE URINALYSIS 07/11/2023 COMPLETE URINALYSIS 07/14/2023 LIPID PANEL 01/09/2024 HEPATIC FUNCTION PANEL 01/09/2024 25OH VITAMIN D 01/09/2024 BMP8+[id number] 02/02/2024 Vitamin D, 31-Njqxaod-[id number] 02/10/2024 Lipid Panel-[id number] 06/16/2025 Hepatic Function Panel [id number] 2024 CBC, Platelet, w/o Differential-[id number] 0 07/30/2025 Lipid Panel-[id number] 07/30/2025 Comp. Metabolic Panel [id number] 2024 Next Appt Details Provider Name:KIERRA Burak ZEPEDA, 11/21/2025 12:30:00 PM, [address] [place] [address], [phone], Insurance Providers Payer Name Payer Address Payer Phone Subscriber Number Group Number Insured Name Patient Relationship to Insured Coverage Start Date Coverage End Date MEDICARE [facility] [address] [facility] [place] [address] [id number] BRYAN NUGENT Self - patient is the insured 3 [facility] [address] [address] [place] [address] [id number] BRYAN NUGENT Self - patient is the insured Medical (General) History Medical History History ICD Code periodontal disease EGD 05/29/07 - Nrml CT of Abdomen 03/13/2007 - M ultiple small visible lymph nodes within the mesentery & retroperitoneum, presumably reactive to prior episode of inflammation. Upper GI w/Air 02/09/2007 - Sm ulceration w/in the antral portion of stomach, additional evaluation w/upper endoscopy is recommended. Small unlikely sliding hh but w/o can comitant gastroesophageal reflux hole in heart Colonoscopy 11/18/2013 - Diverticulosis in the sigmoid colon Hypertension Hyperlipidemia Chest CT July 2022 emphysematous ch anges with stable bilateral nodules Did ultrasound 2019 no significant steno sis Mammogram 2019 patient overdue Vaccination status Tdap 2022 . COVID 4 shots. Shingrix negative. Flu shot q. year. PPSV23 x1 in [address] Zeroogian recheck 10 years Bone density and mammogram are pending f or this fall Mammogram July 2023 normal Bone density July 2023 osteopenia F RAX report major 14%. Hip 3.1% Low-dose CAT scan of the [facility] January 2020 for new 10 mm left upper lobe nodule PET/CT April 2024 increased uptake left u pper lobe nodule Cardiothoracic surgeon Dr. Quinton mendez bronchoscopy and biopsy squamous cell carcinoma. Underwent left upper lobe lobectomy Abdominal ultrasound November 2024 negati ve Mammogram November 2024 negative Colonoscopy December 2024 Dr Lala Nunez proctosigmoid ulcerative colitis doing much better on above medication Surgical History Surgery Date(Month/Year) laparoscopy and appendectomy (Dr. Teague) 03/04 Hospitalization History Reason Date(Month/Year) [facility] Admit 06/29/2024
--- OUTSIDE RECORDS SUMMARY | 2025-11-02 10:20 | XMS_ITS | Clinical Summary ---
Author Organization [facility] Prior to 04/02/[address] [place] [address] Care Team Providers Care Administrative Support Assoc Name Role Phone Pérez Gutierrez MD Primary Care Provider + [phone] Allergies Active Allergy Reactions Criticality Noted Date Comments Penicillins Hives 05/26/2024 Hives Medications Medication Sig Dispensed Refills Start Date End Date Status amLODIPine-benazepril (Lotrel) 5-20 MG per capsule Take 1 capsule by mouth daily. 0 Active atorvastatin (LIPITOR) tablet 40 mg Take 1 tablet (40 mg total) by mouth daily. 0 Active aspirin EC 81 MG tablet Take 1 tablet (81 mg total) by mouth daily. 0 Active vitamin D3 (cholecalciferol) 25 MCG (1000 UT) tablet Take 1 tablet (25 mcg total) by mouth every evening. 0 Active Active Problems Problem Noted Date Diagnosed Date Lung nodule 05/14/2024 Family History Medical History Relation Name Comments Bladder Cancer Brother Breast cancer Sister Relation Name Status Comments Brother Father Mother Sister Social History Tobacco Use Types Packs/Day Years Used Date Smoking Tobacco: Former Cigarettes 1 57 Q uit: 03/2024 Smokeless Tobacco: Never Alcohol Use Standard Drinks/Week Comments Not Currently 0 (1 standard drink = 0.6 oz pur e alcohol) Sex and Gender Information Value Date Recorded Sex Assigned at Female 05/24/2024 11:59 AM EDT Gender Identity Female 06/01/2024 8:14 AM EDT Sexual Orientation Not on file Job Start Date Occupation Industry Not on file Not on file Not on file Last Filed Vital Signs Vital Sign Reading Time Taken Comments Blood Pressure 145/68 07/15/2024 3:28 PM EDT Pulse 71 07/15/2024 3:28 PM EDT Temperature 36.8 C (98.3 F) 07/15/2024 3:28 PM EDT Respiratory Rate 17 06/01/2024 2:12 PM EDT Oxygen Saturation 98% 07/15/2024 3:28 PM EDT Inhaled Oxygen Concentration - - Weight 60 kg (132 lb 3.2 oz) 07/15/2024 3:28 PM EDT Height 160 cm (5' 3 ) 07/15/2024 3:28 PM EDT Body Mass Index 23.42 07/15/2024 3:28 PM EDT Plan of Treatment Health Maintenance Due Date Last Done Comments Hepatitis C Screening 1950 Lung Cancer Screening (Low D ose CT) 1950 COVID-19 Vaccine (#1) [birth year]17/1951 Pneumococcal Vaccine (1 of 2 - PCV) 1956 Depression Screening 1962 Preventative Health Evaluation 1968 Tobacco Cessation Counseling 1968 DTap / Tdap / Td (1 - Tdap) 1969 Colon Cancer Screening (Colonoscopy) 1995 Shingrix-Zoster Vaccine (1 of 2) 2000 Fall Risk Assessment 2015 Osteoporosis Screening (DEXA Scan) 2015 Influenza Vaccine (#1) 2025 RSV Adult > 60+ Yrs or Pregn ant (1 - 1-dose 75+ series) 2025 Hepatitis B Vaccines Aged Out No long er eligible based on patient's age to complete this topic RSV Ped < 20 months Aged Out No longe r eligible based on patient's age to complete this topic Advance Directives For more information, please contact: [phone] Latest Code Status on File Code Status Date Activated Date Inactivated Comments Full Code 06/01/2024 11:54 AM 06/01/2024 9:39 PM This code status was ascertained in the following way: discussion with patient . Care Teams Administrative Support Assoc Relationship Specialty Start Date End Date Pérez Gutierrez MD [address] [address] PCP - General Internal Medicine 05/24/24
== END 2025-11-02 10:57 | disposition home or self-care (01) ==
LOC: HO.HKAS 09:44
PROVIDERS: PCP Internal Medicine; Visit Provider Internal Medicine Critical Care Medicine
DX: I12.9 Hypertensive chronic kidney disease with stage 1 through stage 4 chronic kidney disease, or unspecified chronic kidney disease (principal); N18.9 Chronic kidney disease, unspecified
CPT/HCPCS: 99214

== ENCOUNTER → 2025-11-02 09:43 | Outpatient (BNVA) | payer MEDICARE, OTHER, SELFPAY | PROVIDERS: PCP Internal Medicine; Visit Provider Internal Medicine Critical Care Medicine | DX: I12.9 Hypertensive chronic kidney disease with stage 1 through stage 4 chronic kidney disease, or unspecified chronic kidney disease (principal); N18.32 Chronic kidney disease, stage 3b; Z87.891 Personal history of nicotine dependence; Z85.118 Personal history of other malignant neoplasm of bronchus and lung | CPT/HCPCS: 99212 ==